=== PATIENT | female | born 1990 | race Asian ===

== ENCOUNTER 2024-04-28 22:07 | Inpatient (IN) | payer BC ==
[2024-04-28] MEDS: ELECTROLYTE-148 SOLN 500 ML IV ONE (23:00)
[2024-04-28 23:43] LABS: BASO % 0.1 % (0-2.0); HEMATOCRIT 38.7 % (32.4-45.2); HEMOGLOBIN 13.2 GM/dL (10.7-15.3); LYMPH % 8.7 % (8-40); MCH 28.8 pg (25.7-33.7); MEAN CELL VOLUME 84.8 fl (80-96); MEAN PLT VOLUME 8.5 fl (7.5-11.1); MONO % 5.2 % (3.8-10.2); PLATELET COUNT 194 10^3/uL (134-434); RBC 4.57 M/mm3 (3.60-5.2); RDW 14.5 % (11.6-15.6)
[2024-04-28] MEDS ORDERED: FENTANYL/BUPIVACAINE/NS/PF - PCEA - 50 ML DISP.SYRIN EP ONE (23:44)
[2024-04-28] MEDS: FENTANYL/BUPIVACAINE/NS/PF - PCEA - 50 ML DISP.SYRIN EP SCH (23:50)
[2024-04-28 23:55] LABS: CHLORIDE 107 mmol/L (98-107); POTASSIUM 3.9 mmol/L (3.5-5.1); SODIUM 139 mmol/L (136-145)
[2024-04-28 23:57] LABS: ANION GAP 12 mmol/L (4-13); BLOOD UREA NITROGEN 6.1 mg/dL (7-18); CO2 20 mmol/L (21-32); GLUCOSE,RANDOM 104 mg/dL (74-106)
[2024-04-29] LABS: CREATININE 0.6 mg/dL (0.55-1.3); INR 0.89 (0.83-1.09); PROTHROMBIN TIME (PATIENT) 10.3 SEC (9.7-13.0)
[2024-04-29 00:03] LABS: ACTIVATED PTT 28.3 SECONDS (25.2-36.5)
[2024-04-29] MEDS ORDERED: NALOXONE HCL 0.4 MG/ML VIAL IVPUSH PRN (00:17)
[2024-04-29] MEDS ORDERED: OXYTOCIN 20 UNITS in 0.9% NS 20 UNIT/1,000 ML INFUS.BAG IV ONE (00:29)
[2024-04-29] MEDS ORDERED: LIDOCAINE HCL 1% PRESERVATIVE FREE - 30ML VIAL ONE (00:29)
[2024-04-29] MEDS: OXYTOCIN 20 UNITS in 0.9% NS 20 UNIT/1,000 ML INFUS.BAG IV SCH (01:35)
[2024-04-29] MEDS ORDERED: oxyCODONE HCL 5 MG TABLET PO PRN (02:12)
[2024-04-29] MEDS ORDERED: METHYLERGONOVINE MALEATE 0.2 MG/1 ML AMP IM PRN (02:12)
[2024-04-29] MEDS ORDERED: BENZOCAINE 28 GM HEMORRHOIDAL OINTMENT TP PRN (02:12)
[2024-04-29] MEDS ORDERED: BISACODYL 10 MG SUPP.RECT RC PRN (02:12)
[2024-04-29] MEDS ORDERED: WITCH HAZEL 50% (TUCKS) 40 PAD/JAR PAD TP PRN (02:12)
[2024-04-29] MEDS ORDERED: ACETAMINOPHEN 325 MG TABLET (FP) PO PRN (02:12)
[2024-04-29 02:36] VITALS: BMI 26.5
[2024-04-29] MEDS: BENZOCAINE 20% 57 GM BOTTLE TP PRN (05:58)
[2024-04-29] MEDS: IBUPROFEN 600 MG TABLET (FP) PO PRN (06:21)
[2024-04-29] MEDS: PRENATAL VITAMINS W/ FOLIC ACID TABLET (FP) PO SCH (09:33)
[2024-04-29] MEDS: LEVOTHYROXINE NA 25 MCG TABLET (FP) PO SCH (09:35)
[2024-04-29 12:24] LABS: HIV INTERPRETATION NEGATIVE (NEGATIVE)
[2024-04-30] MEDS: LEVOTHYROXINE NA 25 MCG TABLET (FP) PO SCH (06:33)
[2024-04-30 09:08] VITALS: BP 110/75; PULSE 87; RESP 17; TEMP 98.4
[2024-04-30 09:40] LABS: BASO % 0.4 % (0-2.0); HEMOGLOBIN 10.2 GM/dL (10.7-15.3); LYMPH % 22.8 % (8-40); MCH 28.9 pg (25.7-33.7); MEAN CELL VOLUME 87.6 fl (80-96); MEAN PLT VOLUME 8.3 fl (7.5-11.1); MONO % 5.2 % (3.8-10.2); NEUT % 70.6 % (42.8-82.8); PLATELET COUNT 150 10^3/uL (134-434); RBC 3.53 M/mm3 (3.60-5.2); RDW 14.6 % (11.6-15.6); WHITE BLOOD COUNT 14.1 K/mm3 (4.0-10.0)
[2024-04-30] MEDS: SENNOSIDES/DOCUSATE COMBO (SENNA PLUS) TABLET (UD) PO ONE (11:57)
[2024-04-30] MEDS ORDERED: SENNOSIDES/DOCUSATE COMBO (SENNA PLUS) TABLET (UD) PO PRN (22:00)
== END 2024-04-30 16:00 | disposition home or self-care (01) | DRG 807 ==
LOC: JDEL 22:07 → JLDR 22:45 → J3W 04-29 04:44
PROVIDERS: ADMIT Obstetrics & Gynecology; ATTEND Obstetrics & Gynecology
PROC: 10E0XZZ Delivery of Products of Conception, External Approach (ICD-10-PCS; principal; 2024-04-29)
PROC: 0KQM0ZZ Repair Perineum Muscle, Open Approach (ICD-10-PCS; 2024-04-29)
PROC: 0W8NXZZ Division of Female Perineum, External Approach (ICD-10-PCS; 2024-04-29)
DX: O99.284 Endocrine, nutritional and metabolic diseases complicating childbirth (principal); Z37.0 Single live birth; O70.1 Second degree perineal laceration during delivery; O99.02 Anemia complicating childbirth; Z3A.38 38 weeks gestation of pregnancy
CPT/HCPCS: 36415; 59409; 80048; 85025; 85610; 85730; 86780; 86850; 86900; 86901; 87389